=== PATIENT | male | born 1990 | race Caucasian/White ===

== ENCOUNTER 2021-08-30 19:38 | Emergency (ER) | payer OTHER ==
[2021-08-30] MEDS ORDERED: Ketorolac Tromethamine 30 MG/ML VIAL ONE (20:48)
== END 2021-08-30 21:23 | disposition home or self-care (01) ==
LOC: CSHERS 19:38
DX: S06.9X9A Unspecified intracranial injury with loss of consciousness of unspecified duration, initial encounter (principal); S63.502A Unspecified sprain of left wrist, initial encounter; F17.210 Nicotine dependence, cigarettes, uncomplicated; Z86.718 Personal history of other venous thrombosis and embolism; V89.2XXA Person injured in unspecified motor-vehicle accident, traffic, initial encounter
CPT/HCPCS: 70450; 71045; J1885